=== PATIENT | female | born 1955 | race African-American/Black ===

== ENCOUNTER 2020-04-13 13:48 | Emergency (ER) | payer SELFPAY ==
--- NOTE | 2020-04-13 14:23 | RAD ---
EXAM: Chest one view: HISTORY: Cough COMPARISON: 05/21/2015 FINDINGS: Old granuloma calcification changes in the left hilum. Heart size: Within normal limits. Lungs: Clear of acute process. No evidence for confluent lobar pneumonia, significant pleural effusion, acute edema, or pneumothorax , or other significant acute process. IMPRESSION: No significant acute intrathoracic disease.
== END 2020-04-13 15:12 | disposition home or self-care (01) ==
LOC: ERS 13:48
DX: T78.40XA Allergy, unspecified, initial encounter (principal); R05 Cough; R09.81 Nasal congestion; E78.5 Hyperlipidemia, unspecified; I10 Essential (primary) hypertension; F17.210 Nicotine dependence, cigarettes, uncomplicated; Z79.82 Long term (current) use of aspirin; Z79.899 Other long term (current) drug therapy
CPT/HCPCS: 71045

== ENCOUNTER 2020-09-10 15:01 | Emergency (ER) | payer BC | END 2020-09-10 16:18 | disposition home or self-care (01) | LOC: ERS 15:01 | DX: R05 Cough (principal); R09.81 Nasal congestion; Z79.899 Other long term (current) drug therapy; Z79.82 Long term (current) use of aspirin; E78.5 Hyperlipidemia, unspecified; I10 Essential (primary) hypertension; F17.210 Nicotine dependence, cigarettes, uncomplicated | CPT/HCPCS: 71045 ==

== ENCOUNTER 2021-01-08 | Emergency (ER) | payer OTHER, BC | END 2021-01-08 21:28 | disposition home or self-care (01) ==

== ENCOUNTER 2021-05-27 16:27 | Emergency (ER) | payer BC ==
[2021-05-27 17:16] LABS: Hemoglobin 13.1 g/dL (12.0-16.0); Mean Corpuscular HGB CONC 32.7 g/dL (32.0-36.0); Mean Corpuscular Hemoglobin 30.5 pg (27.0-31.0); Mean Corpuscular Volume 93.1 fL (78.0-98.0); Mean Platelet Volume 6.7 fL (7.4-10.4); Platelet Count 258 thou/uL (130-400); RBC Distribution Width 11.4 % (11.5-14.5); Red Blood Cell (RBC) Count 4.29 mill/uL (4.20-5.40)
[2021-05-27 17:45] LABS: ALT (SGPT) 27 U/L (8-55); AST (SGOT) 32 U/L (5-34); Albumin 4.6 g/dL (3.4-4.8); Alkaline Phosphatase 76 U/L (40-110); Anion Gap 17 mmol/L (10-20); BUN (Urea Nitrogen) 5 mg/dL (9.8-20.1); Bilirubin, Total 0.5 mg/dL (0.2-1.2); Calc. Creatinine Clearance 0 mL/min (70-130); Calcium 9.7 mg/dL (7.8-10.44); Carbon Dioxide 26 mmol/L (23-31); Chloride 87 mmol/L (98-107); Globulin 3.1 g/dL (2.4-3.5); Glucose 128 mg/dL (80-115); Potassium 3.9 mmol/L (3.5-5.1); Protein, Total 7.7 g/dL (5.8-8.1); Sodium 126 mmol/L (136-145)
[2021-05-27 17:48] LABS: Band 1 % (5-11); Eosinophils 1 % (0-10); Lymphocytes 31 % (21-51); MDiff Complete? YES; Monocytes 4 % (0-10); Neutrophil 43 % (42-75); Platelet Morphology Comment Appears Adequate; Reactive Lymphocytes 20 % (0-10); Target Cells SLIGHT = 2-5 cells (100X) (0-1/hpf)
== END 2021-05-27 20:58 | disposition left against medical advice (07) ==
LOC: ERS 16:27
DX: Z53.21 Procedure and treatment not carried out due to patient leaving prior to being seen by health care provider (principal)
CPT/HCPCS: 36415; 71045; 80053; 83690; 84484; 85025; 93005; 94760

== ENCOUNTER 2021-09-25 13:48 | Emergency (ER) | payer OTHER ==
[2021-09-25] MEDS ORDERED: Ketorolac Tromethamine 30 MG/ML VIAL ONE (15:39)
== END 2021-09-25 15:48 | disposition home or self-care (01) ==
LOC: ERS 13:48
DX: M16.12 Unilateral primary osteoarthritis, left hip (principal); I10 Essential (primary) hypertension; E78.5 Hyperlipidemia, unspecified; F17.210 Nicotine dependence, cigarettes, uncomplicated
CPT/HCPCS: 96372; J1885

== ENCOUNTER 2021-11-06 10:56 | Emergency (ER) | payer OTHER ==
[2021-11-06] MEDS ORDERED: Ketorolac Tromethamine 30 MG/ML VIAL ONE (13:13)
== END 2021-11-06 13:45 | disposition home or self-care (01) ==
LOC: ERS 10:56
DX: S42.035A Nondisplaced fracture of lateral end of left clavicle, initial encounter for closed fracture (principal); I10 Essential (primary) hypertension; E78.5 Hyperlipidemia, unspecified; F17.210 Nicotine dependence, cigarettes, uncomplicated; W01.0XXA Fall on same level from slipping, tripping and stumbling without subsequent striking against object, initial encounter
CPT/HCPCS: 96372; J1885

== ENCOUNTER 2022-04-20 13:55 | Emergency (ER) | payer OTHER ==
[~2022-04-20 13:55] MED LIST: Iopamidol-370 76% 500 ML 1 ML ONE
[2022-04-20 14:37] LABS: #Basophils 0.1 thou/uL (0.0-0.2); #Eosinphils 0.1 thou/uL (0.0-0.7); #Lymphocytes 1.1 thou/uL (1.20-3.40); #Monocytes 1.4 thou/uL (0.11-0.59); #Neutrophils 12.8 thou/uL (1.40-6.50); %Basophils 0.4 % (0.0-1.0); %Eosinophils 0.5 % (0.0-10.0); %Lymphocytes 7.2 % (21.0-51.0); %Monocytes 8.9 % (0.0-10.0); %Neutrophils 83.1 % (42.0-75.0); Mean Corpuscular HGB CONC 32.5 g/dL (32.0-36.0); Mean Corpuscular Hemoglobin 31.2 pg (27.0-31.0); Mean Corpuscular Volume 96.3 fl (78.0-98.0); Mean Platelet Volume 6.6 fL (7.4-10.4); Platelet Count 732 10x3/uL (130-400); RBC Distribution Width 14.8 % (11.5-14.5); Red Blood Cell (RBC) Count 2.87 mill/uL (4.20-5.40); White Blood Cell (WBC) Count 15.4 10x3/uL (4.8-10.8)
[2022-04-20 14:56] LABS: ALT (SGPT) 10 U/L (8-55); AST (SGOT) 18 U/L (5-34); Albumin 2.8 g/dL (3.4-4.8); Alkaline Phosphatase 96 U/L (40-110); Anion Gap 13 mmol/L (10-20); BUN (Urea Nitrogen) 5 mg/dL (9.8-20.1); Bilirubin, Total 0.8 mg/dL (0.2-1.2); Calc. Creatinine Clearance 0 mL/min (70-130); Calcium 8.5 mg/dL (7.8-10.44); Carbon Dioxide 27 mmol/L (23-31); Chloride 93 mmol/L (98-107); Estimated GFR 103; Globulin 3.3 g/dL (2.4-3.5); Glucose 105 mg/dL (80-115); Potassium 4.3 mmol/L (3.5-5.1); Protein, Total 6.1 g/dL (5.8-8.1); Sodium 129 mmol/L (136-145)
[2022-04-20 18:06] LABS: Bilirubin Negative (Negative); Blood, Urine 3+ (Negative); Clarity Turbid (Clear); Glucose, Urine (Dipstick) Normal (Negative); Ketone, Urine 10 mg/dL (Negative); Leukocyte 500 Leu/uL (Negative); Nitrite Negative (Negative); Protein, Urine (Dipstick) 50 mg/dL (Neg-Trace); Squamous Epithelial 0-3 HPF (0-3); Urobilinogen Normal mg/dL (Less than 2); pH, Urine 6.5 (5.0-9.0)
[2022-04-20 18:18] LABS: Bacteria/HPF 1+ HPF (None Seen); WBC/HPF 21-50 HPF (0-3)
[2022-04-20] MEDS ORDERED: cefTRIAXone\\ROCEPHIN 2 GM VIAL ONE (18:30)
[2022-04-20] MEDS ORDERED: metroNIDAZOLE 500 MG/100 ML BAG ONE (19:09)
== END 2022-04-20 23:25 | disposition short-term general hospital (02) ==
LOC: ERS 13:55
DX: L02.211 Cutaneous abscess of abdominal wall (principal); E87.1 Hypo-osmolality and hyponatremia; N39.0 Urinary tract infection, site not specified; I10 Essential (primary) hypertension; E78.5 Hyperlipidemia, unspecified; Z79.82 Long term (current) use of aspirin
CPT/HCPCS: 36415; 74177; 80053; 81003; 81015; 85025; 87077; 87086; 87186; 96361; 96365; 96367; J0696

== ENCOUNTER 2022-05-14 14:05 | Outpatient (CLI) | payer OTHER, MEDICARE ==
[~2022-05-14 14:05] MED LIST changes: +Iopamidol 370 76% 100 ML VIAL ONE; -Iopamidol-370 76% 500 ML 1 ML ONE
== END 2022-05-14 14:06 | disposition home or self-care (01) ==
LOC: BICCT 14:05
PROVIDERS: ATTEND Nurse Practitioner Family
DX: C54.1 Malignant neoplasm of endometrium (principal); Z98.890 Other specified postprocedural states
CPT/HCPCS: 74177; Q9967

== ENCOUNTER 2022-05-23 14:17 | Outpatient (CLI) | payer OTHER, MEDICARE | END 2022-05-23 14:18 | disposition home or self-care (01) | LOC: ULT 14:17 | PROVIDERS: ATTEND Surgery | DX: M79.89 Other specified soft tissue disorders (principal); I82.411 Acute embolism and thrombosis of right femoral vein ==

== ENCOUNTER 2022-05-23 16:12 | Emergency (ER) | payer MEDICARE, OTHER ==
[2022-05-23 16:43] LABS: #Eosinphils 0.1 thou/uL (0.0-0.7); #Lymphocytes 2.1 thou/uL (1.20-3.40); #Monocytes 0.7 thou/uL (0.11-0.59); #Neutrophils 2.9 thou/uL (1.40-6.50); %Basophils 0.2 % (0.0-1.0); %Eosinophils 0.9 % (0.0-10.0); %Monocytes 12.4 % (0.0-10.0); %Neutrophils 50.4 % (42.0-75.0); Hemoglobin 12.1 g/dL (12.0-16.0); Mean Corpuscular HGB CONC 31.8 g/dL (32.0-36.0); Mean Corpuscular Hemoglobin 30.2 pg (27.0-31.0); Mean Platelet Volume 6.8 fL (7.4-10.4); Platelet Count 299 10x3/uL (130-400); RBC Distribution Width 14.5 % (11.5-14.5); Red Blood Cell (RBC) Count 4.01 mill/uL (4.20-5.40); White Blood Cell (WBC) Count 5.7 10x3/uL (4.8-10.8)
[2022-05-23 17:03] LABS: ALT (SGPT) 16 U/L (8-55); AST (SGOT) 23 U/L (5-34); Albumin 3.2 g/dL (3.4-4.8); Alkaline Phosphatase 116 U/L (40-110); Anion Gap 12 mmol/L (10-20); BUN (Urea Nitrogen) 5 mg/dL (9.8-20.1); Bilirubin, Total 0.5 mg/dL (0.2-1.2); Calc. Creatinine Clearance 0 mL/min (70-130); Carbon Dioxide 24 mmol/L (23-31); Chloride 100 mmol/L (98-107); Estimated GFR 100; Globulin 3.7 g/dL (2.4-3.5); Glucose 91 mg/dL (80-115); Potassium 3.9 mmol/L (3.5-5.1); Protein, Total 6.9 g/dL (5.8-8.1); Sodium 132 mmol/L (136-145)
[2022-05-23] MEDS ORDERED: Rivaroxaban 15 MG TAB PO SCH (19:30)
== END 2022-05-23 19:30 | disposition home or self-care (01) ==
LOC: ERS 16:12
DX: I82.411 Acute embolism and thrombosis of right femoral vein (principal); E78.5 Hyperlipidemia, unspecified; F17.210 Nicotine dependence, cigarettes, uncomplicated; Z79.82 Long term (current) use of aspirin; M79.89 Other specified soft tissue disorders; C54.1 Malignant neoplasm of endometrium
CPT/HCPCS: 36415; 80053; 82248; 83615; 84100; 84550; 85025; 86304; 99283

== ENCOUNTER 2022-06-09 13:22 | Outpatient (CLI) | payer MEDICARE, OTHER | END 2022-06-09 13:23 | disposition home or self-care (01) | LOC: ULT 13:22 | PROVIDERS: ATTEND Internal Medicine Hematology & Oncology | DX: Z51.11 Encounter for antineoplastic chemotherapy (principal); C54.1 Malignant neoplasm of endometrium; I08.1 Rheumatic disorders of both mitral and tricuspid valves | CPT/HCPCS: 93306 ==

== ENCOUNTER 2022-06-17 09:24 | Day surgery (SDC) | payer MEDICARE, OTHER ==
[2022-06-13 10:28] VITALS: BMI 20.3
[2022-06-17] MEDS ORDERED: Acetaminophen 500 MG TAB ONE (09:59)
[2022-06-17] MEDS ORDERED: Lidocaine 2% PF 5 ML VIAL ONE (11:10)
[2022-06-17] MEDS ORDERED: Bupivacaine/Epinephrine 0.25% 30 ML VIAL ONE (11:10)
[2022-06-17] MEDS ORDERED: Levofloxacin 500 mg/D5W 100 ml Premix Bag ONE (11:27)
[2022-06-17] MEDS ORDERED: fentaNYL PF 100 MCG/2 ML SYRINGE ONE (12:03)
[2022-06-17] MEDS ORDERED: Ondansetron PF 4 MG/2 ML Vial ONE (12:15)
[2022-06-17] MEDS ORDERED: PROPOFOL 200 MG/20 ML VIAL ONE (12:15)
[2022-06-17] MEDS ORDERED: Lidocaine 1% PF 5 ML VIAL ONE (12:15)
[2022-06-17] MEDS ORDERED: PHENYLEPHRINE-NS 100 MCG/ML 10 ML SYRINGE ONE (12:15)
[2022-06-17] MEDS ORDERED: HYDROcodone/Acetaminophen 5/325 mg Tablet ONE (14:25)
== END 2022-06-17 14:45 | disposition home or self-care (01) ==
LOC: SDC 09:24
PROVIDERS: ATTEND Surgery
PROC: 0JH60WZ Insertion of Totally Implantable Vascular Access Device into Chest Subcutaneous Tissue and Fascia, Open Approach (ICD-10-PCS; principal; 2022-06-17)
PROC: 02HV33Z Insertion of Infusion Device into Superior Vena Cava, Percutaneous Approach (ICD-10-PCS; 2022-06-17)
DX: C54.1 Malignant neoplasm of endometrium (principal); C77.9 Secondary and unspecified malignant neoplasm of lymph node, unspecified; Z79.01 Long term (current) use of anticoagulants; Z79.82 Long term (current) use of aspirin; Z79.899 Other long term (current) drug therapy; Z88.0 Allergy status to penicillin; Z90.710 Acquired absence of both cervix and uterus
CPT/HCPCS: 71045; 80053; 82248; 83615; 84100; 84550; 85025; 86304; 93005; 93010; C1788; J1642; J1956; J2001

== ENCOUNTER 2022-08-04 10:27 | Emergency (ER) | payer MEDICARE, OTHER ==
[2022-08-04 11:20] LABS: Hemoglobin 9.1 g/dL (12.0-16.0); Mean Corpuscular HGB CONC 32.3 g/dL (32.0-36.0); Mean Corpuscular Hemoglobin 36.5 pg (27.0-31.0); Mean Platelet Volume 7.8 fL (7.4-10.4); Platelet Count 369 10x3/uL (130-400); RBC Distribution Width 16.3 % (11.5-14.5); White Blood Cell (WBC) Count 4.6 10x3/uL (4.8-10.8)
[2022-08-04 11:29] LABS: ALT (SGPT) 12 U/L (8-55); AST (SGOT) 15 U/L (5-34); Albumin 3.5 g/dL (3.4-4.8); Alkaline Phosphatase 88 U/L (40-110); Anion Gap 13 mmol/L (10-20); BUN (Urea Nitrogen) 9 mg/dL (9.8-20.1); Bilirubin, Total 0.7 mg/dL (0.2-1.2); Calc. Creatinine Clearance 0 mL/min (70-130); Calcium 9.2 mg/dL (7.8-10.44); Carbon Dioxide 23 mmol/L (23-31); Chloride 100 mmol/L (98-107); Estimated GFR 97; Globulin 3.5 g/dL (2.4-3.5); Glucose 181 mg/dL (80-115); Lipase 11 U/L (8-78); Potassium 3.8 mmol/L (3.5-5.1); Sodium 132 mmol/L (136-145)
[2022-08-04 11:46] LABS: #Basophils 0.1 thou/uL (0.0-0.2); #Eosinphils 0.1 thou/uL (0.0-0.7); #Lymphocytes 0.5 thou/uL (1.20-3.40); #Monocytes 0.1 thou/uL (0.11-0.59); #Neutrophils 3.8 thou/uL (1.40-6.50); %Basophils 1.4 % (0.0-1.0); %Eosinophils 2.4 % (0.0-10.0); %Lymphocytes 10.6 % (21.0-51.0); %Monocytes 1.4 % (0.0-10.0); Anisocytosis SLIGHT = 6-15 cells (100X) (0-5/hpf); Band 6 % (5-11); Eosinophils 2 % (0-10); Lymphocytes 15 % (21-51); MDiff Complete? YES; Macrocytosis MODERATE=16-30 cells (100X) (0-5/hpf); Metamyelocyte 1 % (0-0); Neutrophil 76 % (42-75); Ovalocytes SLIGHT = 2-5 cells (100X) (0-1/hpf); Platelet Morphology Comment Appears Adequate; Target Cells SLIGHT = 2-5 cells (100X) (0-1/hpf)
[2022-08-04] MEDS ORDERED: Ondansetron PF 4 MG/2 ML Vial ONE (13:04)
[2022-08-04] MEDS ORDERED: Morphine 4 MG/ML VIAL ONE (13:04)
== END 2022-08-04 13:53 | disposition home or self-care (01) ==
LOC: ERS 10:27
DX: K29.70 Gastritis, unspecified, without bleeding (principal); D64.9 Anemia, unspecified; E87.1 Hypo-osmolality and hyponatremia; D72.819 Decreased white blood cell count, unspecified; I10 Essential (primary) hypertension; E78.5 Hyperlipidemia, unspecified; F17.210 Nicotine dependence, cigarettes, uncomplicated; Z79.899 Other long term (current) drug therapy
CPT/HCPCS: 36415; 74177; 80053; 83690; 84484; 85025; 93005; 96374; 96375; J2270; J2405; Q9967

== ENCOUNTER 2022-08-19 09:45 | Inpatient (IN) | payer OTHER ==
[2022-08-19 11:15] LABS: #Basophils 0.1 thou/uL (0.0-0.2); #Lymphocytes 1.3 thou/uL (1.20-3.40); #Monocytes 0.4 thou/uL (0.11-0.59); #Neutrophils 5.2 thou/uL (1.40-6.50); %Basophils 0.8 % (0.0-1.0); %Eosinophils 0.5 % (0.0-10.0); %Lymphocytes 18.6 % (21.0-51.0); %Monocytes 5.8 % (0.0-10.0); %Neutrophils 74.3 % (42.0-75.0); Hemoglobin 7.3 g/dL (12.0-16.0); Mean Corpuscular HGB CONC 32.8 g/dL (32.0-36.0); Mean Corpuscular Hemoglobin 36.4 pg (27.0-31.0); Mean Platelet Volume 6.6 fL (7.4-10.4); Platelet Count 236 10x3/uL (130-400); RBC Distribution Width 14.7 % (11.5-14.5); Red Blood Cell (RBC) Count 1.99 mill/uL (4.20-5.40); White Blood Cell (WBC) Count 6.9 10x3/uL (4.8-10.8)
[2022-08-19] MEDS ORDERED: Ondansetron PF 4 MG/2 ML Vial ONE (11:23)
[2022-08-19 11:27] LABS: INR-International Normal Ratio 1.5; PTT 33.3 sec (22.9-36.1)
[2022-08-19] MEDS ORDERED: Morphine 4 MG/ML VIAL ONE (11:51)
[2022-08-19 12:02] LABS: ALT (SGPT) 10 U/L (8-55); AST (SGOT) 17 U/L (5-34); Albumin 3.1 g/dL (3.4-4.8); Alkaline Phosphatase 98 U/L (40-110); Anion Gap 12 mmol/L (10-20); BUN (Urea Nitrogen) 11 mg/dL (9.8-20.1); Bilirubin, Total 0.3 mg/dL (0.2-1.2); Calc. Creatinine Clearance 0 mL/min (70-130); Calcium 8.6 mg/dL (7.8-10.44); Carbon Dioxide 25 mmol/L (23-31); Chloride 98 mmol/L (98-107); Estimated GFR 102; Globulin 2.8 g/dL (2.4-3.5); Glucose 98 mg/dL (80-115); Potassium 3.7 mmol/L (3.5-5.1); Protein, Total 5.9 g/dL (5.8-8.1); Sodium 131 mmol/L (136-145)
[2022-08-19] MEDS ORDERED: Ondansetron PF 4 MG/2 ML Vial IVP PRN (13:17)
[2022-08-19] MEDS ORDERED: Pantoprazole 80 MG in Sodium Chloride 0.9% 100 ML IVPB SCH (15:45)
[2022-08-19] MEDS: Pantoprazole 80 MG, Admixture Fee 1 EACH in Sodium Chloride 0.9% 100 ML IVPB SCH (21:43)
[2022-08-20 01:15] LABS: Hemoglobin 8.3 g/dL (12.0-16.0)
[2022-08-20 05:40] LABS: #Basophils 0.1 thou/uL (0.0-0.2); #Lymphocytes 1.8 thou/uL (1.20-3.40); #Monocytes 0.7 thou/uL (0.11-0.59); #Neutrophils 3.5 thou/uL (1.40-6.50); %Basophils 0.9 % (0.0-1.0); %Eosinophils 0.5 % (0.0-10.0); %Lymphocytes 29.2 % (21.0-51.0); %Monocytes 10.8 % (0.0-10.0); %Neutrophils 58.5 % (42.0-75.0); Hemoglobin 7.9 g/dL (12.0-16.0); Mean Corpuscular HGB CONC 33.1 g/dL (32.0-36.0); Mean Corpuscular Hemoglobin 35.1 pg (27.0-31.0); Mean Platelet Volume 6.8 fL (7.4-10.4); Platelet Count 158 10x3/uL (130-400); RBC Distribution Width 17.6 % (11.5-14.5); Red Blood Cell (RBC) Count 2.26 mill/uL (4.20-5.40)
[2022-08-20 06:00] LABS: Anion Gap 10 mmol/L (10-20); BUN (Urea Nitrogen) 8 mg/dL (9.8-20.1); Calc. Creatinine Clearance 94 mL/min (70-130); Calcium 8.2 mg/dL (7.8-10.44); Carbon Dioxide 25 mmol/L (23-31); Chloride 104 mmol/L (98-107); Estimated GFR 102; Glucose 78 mg/dL (80-115); Potassium 3.8 mmol/L (3.5-5.1); Sodium 135 mmol/L (136-145)
[2022-08-20] MEDS: Pantoprazole 80 MG, Admixture Fee 1 EACH in Sodium Chloride 0.9% 100 ML IVPB SCH (07:58)
[2022-08-20] MEDS ORDERED: PROPOFOL 200 MG/20 ML VIAL ONE (10:27)
[2022-08-20] MEDS ORDERED: Lidocaine 1% PF 5 ML VIAL ONE (10:27)
[2022-08-20] MEDS ORDERED: Ondansetron HCl/PF 4 MG/2 ML Vial IVP PRN (11:03)
[2022-08-20] MEDS ORDERED: PACU-Morphine 4MG/ML VIAL SLOW IVP PRN (11:03)
[2022-08-20] MEDS ORDERED: fentaNYL 50 mcg/mL 1 mL Vial ONE (11:03)
[2022-08-20] MEDS ORDERED: Promethazine HCl 25 MG/ML VIAL IM PRN (11:03)
[2022-08-20] MEDS ORDERED: Morphine Sulfate 2 MG/ML SYRINGE SLOW IVP PRN (11:03)
[2022-08-20] MEDS ORDERED: Lisinopril 10 MG TAB PO SCH (16:00)
[2022-08-20] MEDS: Pantoprazole 40 MG VIAL IVP SCH (20:14)
[2022-08-20] MEDS ORDERED: Melatonin 3 MG TAB PO PRN (20:38)
[2022-08-20] MEDS ORDERED: diphenhydrAMINE 25 MG CAP PO SCH (20:45)
[2022-08-21 05:36] LABS: Hemoglobin 7.8 g/dL (12.0-16.0)
[2022-08-21] MEDS: Pantoprazole 40 MG VIAL IVP SCH (07:53)
[2022-08-21 08:02] VITALS: BP 164/76; TEMP 98.4
[2022-08-21] MEDS ORDERED: Lisinopril 10 MG TAB PO SCH (09:00)
[2022-08-21] MEDS ORDERED: Atorvastatin Calcium 20 MG TAB PO SCH (09:00)
== END 2022-08-21 09:24 | disposition home or self-care (01) | DRG 378 ==
LOC: ERS 09:45 → T4-B 14:04
PROVIDERS: ADMIT Internal Medicine; ATTEND Hospitalist
PROC: 30233N1 Transfusion of Nonautologous Red Blood Cells into Peripheral Vein, Percutaneous Approach (ICD-10-PCS; 2022-08-19)
PROC: 0DB78ZX Excision of Stomach, Pylorus, Via Natural or Artificial Opening Endoscopic, Diagnostic (ICD-10-PCS; principal; 2022-08-20)
DX: K25.4 Chronic or unspecified gastric ulcer with hemorrhage (principal); C56.9 Malignant neoplasm of unspecified ovary; D62 Acute posthemorrhagic anemia; I10 Essential (primary) hypertension; F17.210 Nicotine dependence, cigarettes, uncomplicated; Z88.0 Allergy status to penicillin; Z79.82 Long term (current) use of aspirin; Z79.899 Other long term (current) drug therapy
CPT/HCPCS: 36415; 36430; 80048; 80053; 82248; 83615; 84100; 84550; 85014; 85018; 85025; 85610; 85730; 86304; 86850; 86900; 86901; 88305; 88342; C9113; J2270; J2405; J2704; J3010; J3490; P9016

== ENCOUNTER 2022-09-16 13:42 | Inpatient (IN) | payer OTHER ==
[2022-09-16] MEDS ORDERED: Ondansetron PF 4 MG/2 ML Vial IVP PRN (15:52)
[2022-09-16] MEDS ORDERED: Pantoprazole 40 MG VIAL IVP SCH (16:00)
[2022-09-16 16:14] LABS: #Monocytes 1.1 thou/uL (0.11-0.59); #Neutrophils 6.5 thou/uL (1.40-6.50); %Basophils 0.1 % (0.0-1.0); %Eosinophils 0.1 % (0.0-10.0); %Lymphocytes 16.1 % (21.0-51.0); %Monocytes 12.4 % (0.0-10.0); %Neutrophils 70.9 % (42.0-75.0); Hemoglobin 7.5 g/dL (12.0-16.0); Mean Corpuscular HGB CONC 32.6 g/dL (32.0-36.0); Mean Corpuscular Hemoglobin 33.5 pg (27.0-31.0); Mean Corpuscular Volume 102.7 fl (78.0-98.0); Mean Platelet Volume 10.3 fL (7.4-10.4); Platelet Count 179 10x3/uL (130-400); RBC Distribution Width 23.1 % (11.5-14.5); Red Blood Cell (RBC) Count 2.24 mill/uL (4.20-5.40); White Blood Cell (WBC) Count 9.1 10x3/uL (4.8-10.8)
[2022-09-16] MEDS: Sodium Chloride 0.9% 1,000 ML IV SCH (16:44)
[2022-09-16 17:35] LABS: ALT (SGPT) Less than 7 U/L (8-55); AST (SGOT) 10 U/L (5-34); Alkaline Phosphatase 101 U/L (40-110); Anion Gap 13 mmol/L (10-20); BUN (Urea Nitrogen) 6 mg/dL (9.8-20.1); Bilirubin, Total 0.6 mg/dL (0.2-1.2); Calc. Creatinine Clearance 83 mL/min (70-130); Carbon Dioxide 21 mmol/L (23-31); Chloride 102 mmol/L (98-107); Estimated GFR 99; Globulin 2.8 g/dL (2.4-3.5); Glucose 106 mg/dL (80-115); Potassium 4.4 mmol/L (3.5-5.1); Protein, Total 5.8 g/dL (5.8-8.1); Sodium 132 mmol/L (136-145)
[2022-09-16] MEDS ORDERED: Thiamine 100 MG TAB PO SCH (19:30)
[2022-09-16] MEDS: Zolpidem Tartrate 5 MG TAB PO PRN (20:33)
[2022-09-16 22:16] LABS: Hemoglobin 7.9 g/dL (12.0-16.0)
[2022-09-17 04:35] LABS: #Monocytes 0.8 thou/uL (0.11-0.59); %Eosinophils 0.3 % (0.0-10.0); %Lymphocytes 18.7 % (21.0-51.0); %Monocytes 10.9 % (0.0-10.0); %Neutrophils 69.5 % (42.0-75.0); Hemoglobin 7.5 g/dL (12.0-16.0); Mean Corpuscular HGB CONC 33.5 g/dL (32.0-36.0); Mean Corpuscular Hemoglobin 33.3 pg (27.0-31.0); Mean Platelet Volume 10.5 fL (7.4-10.4); Platelet Count 180 10x3/uL (130-400); RBC Distribution Width 23.6 % (11.5-14.5); Red Blood Cell (RBC) Count 2.25 mill/uL (4.20-5.40); White Blood Cell (WBC) Count 7.2 10x3/uL (4.8-10.8)
[2022-09-17 04:48] LABS: Mean Corpuscular Volume 99.6 fl (78.0-98.0)
[2022-09-17 05:08] LABS: ALT (SGPT) Less than 7 U/L (8-55); AST (SGOT) 12 U/L (5-34); Albumin 2.6 g/dL (3.4-4.8); Alkaline Phosphatase 88 U/L (40-110); Anion Gap 11 mmol/L (10-20); BUN (Urea Nitrogen) Less than 4 mg/dL (9.8-20.1); Bilirubin, Total 0.7 mg/dL (0.2-1.2); Calc. Creatinine Clearance 93 mL/min (70-130); Calcium 8.2 mg/dL (7.8-10.44); Carbon Dioxide 22 mmol/L (23-31); Chloride 105 mmol/L (98-107); Estimated GFR 102; Globulin 2.7 g/dL (2.4-3.5); Glucose 90 mg/dL (80-115); Potassium 4.2 mmol/L (3.5-5.1); Protein, Total 5.3 g/dL (5.8-8.1); Sodium 134 mmol/L (136-145)
[2022-09-17] MEDS: Sodium Chloride 0.9% 1,000 ML IV SCH (06:29)
[2022-09-17] MEDS: Folic Acid 1 MG TAB PO SCH (08:13)
[2022-09-17] MEDS: Pantoprazole 40 MG VIAL IVP SCH ×2 (08:13→20:06)
[2022-09-17] MEDS: Thiamine 100 MG TAB PO SCH (08:13)
[2022-09-17] MEDS: Multivit, Therapeutic 1 TAB PO SCH (08:13)
[2022-09-17] MEDS: Nicotine 21 MG PATCH TD SCH (08:14)
[2022-09-17] MEDS: Lisinopril 10 MG TAB PO SCH (08:56)
[2022-09-17] MEDS: Atorvastatin Calcium 20 MG TAB PO SCH (08:56)
[2022-09-17] MEDS ORDERED: Lisinopril 10 MG TAB PO SCH (09:00)
[2022-09-17] MEDS ORDERED: Atorvastatin Calcium 20 MG TAB PO SCH (09:00)
[2022-09-17] MEDS ORDERED: Bisacodyl 5 MG TAB PO PRN (13:48)
[2022-09-17] MEDS ORDERED: Docusate 100 MG CAP PO PRN (13:48)
[2022-09-17] MEDS: hydrALAZINE 20 MG/ML VIAL SLOW IVP PRN (15:55)
[2022-09-17] MEDS ORDERED: Morphine 4 MG/ML VIAL SLOW IVP SCH (17:00)
[2022-09-17] MEDS ORDERED: Lidocaine 2% Viscous Solution 10 ML, Aluminum & Magnesium Hydroxide 30 ML SSW SCH ×2 (17:00→18:00)
[2022-09-17 17:10] LABS: Hemoglobin 8.5 g/dL (12.0-16.0)
[2022-09-17 17:38] LABS: Troponin I Less than 0.010 ng/mL (< 0.028)
[2022-09-17] MEDS ORDERED: Morphine 2 MG/ML VIAL SLOW IVP PRN (19:00)
[2022-09-17] MEDS: Zolpidem Tartrate 5 MG TAB PO PRN (20:06)
[2022-09-18] MEDS: Nicotine 21 MG PATCH TD SCH (08:22)
[2022-09-18] MEDS: Pantoprazole 40 MG VIAL IVP SCH ×2 (08:22→20:17)
[2022-09-18] MEDS: Lisinopril 10 MG TAB PO SCH (08:23)
[2022-09-18] MEDS: Atorvastatin Calcium 20 MG TAB PO SCH (08:23)
[2022-09-18] MEDS: Multivit, Therapeutic 1 TAB PO SCH (08:23)
[2022-09-18] MEDS: Folic Acid 1 MG TAB PO SCH (08:23)
[2022-09-18] MEDS: Thiamine 100 MG TAB PO SCH (08:23)
[2022-09-18 09:40] LABS: Hemoglobin 7.5 g/dL (12.0-16.0)
[2022-09-18] MEDS: hydrALAZINE 20 MG/ML VIAL SLOW IVP PRN (14:59)
[2022-09-18 15:14] LABS: Hemoglobin 7.6 g/dL (12.0-16.0)
[2022-09-18] MEDS: Zolpidem Tartrate 5 MG TAB PO PRN (20:34)
[2022-09-18] MEDS ORDERED: Acetaminophen 325 MG TAB PO PRN (23:45)
[2022-09-19 00:44] LABS: Hemoglobin 8.8 g/dL (12.0-16.0)
[2022-09-19 07:40] VITALS: BP 164/87; TEMP 98.2
[2022-09-19] MEDS: Multivit, Therapeutic 1 TAB PO SCH (08:03)
[2022-09-19] MEDS: Lisinopril 10 MG TAB PO SCH (08:03)
[2022-09-19] MEDS: Atorvastatin Calcium 20 MG TAB PO SCH (08:03)
[2022-09-19] MEDS: Thiamine 100 MG TAB PO SCH (08:03)
[2022-09-19] MEDS: Folic Acid 1 MG TAB PO SCH (08:03)
[2022-09-19] MEDS: Nicotine 21 MG PATCH TD SCH (08:03)
[2022-09-19] MEDS: Pantoprazole 40 MG VIAL IVP SCH (08:04)
== END 2022-09-19 11:42 | disposition home or self-care (01) | DRG 378 ==
LOC: 2NO 15:48
PROVIDERS: ADMIT Internal Medicine; ATTEND Internal Medicine
PROC: 30233N0 Transfusion of Autologous Red Blood Cells into Peripheral Vein, Percutaneous Approach (ICD-10-PCS; principal; 2022-09-18)
DX: K25.6 Chronic or unspecified gastric ulcer with both hemorrhage and perforation (principal); A04.8 Other specified bacterial intestinal infections; D62 Acute posthemorrhagic anemia; C56.9 Malignant neoplasm of unspecified ovary; I10 Essential (primary) hypertension; G47.00 Insomnia, unspecified; E78.5 Hyperlipidemia, unspecified; F17.210 Nicotine dependence, cigarettes, uncomplicated; Z98.890 Other specified postprocedural states; Z79.01 Long term (current) use of anticoagulants; Z86.718 Personal history of other venous thrombosis and embolism; Z90.710 Acquired absence of both cervix and uterus; Z71.6 Tobacco abuse counseling; Z79.82 Long term (current) use of aspirin; Z79.899 Other long term (current) drug therapy; Z88.0 Allergy status to penicillin; Z91.148 Patient's other noncompliance with medication regimen for other reason
CPT/HCPCS: 36415; 36430; 80053; 84484; 85014; 85018; 85025; 85730; 86850; 86900; 86901; 93005; 93010; C9113; J0360; J2270; J2272; J7050; P9016

== ENCOUNTER → 2022-09-16 | Day surgery (SDC) | payer OTHER ==
[~2022-09-16] MED LIST changes: +Acetaminophen 500 MG TAB ONE; +Acetaminophen 500 MG TAB PO SCH; -Iopamidol 370 76% 100 ML VIAL ONE; +diphenhydrAMINE 25 MG CAP ONE; +diphenhydrAMINE 25 MG CAP PO SCH
[2022-09-16 15:35] VITALS: BP 129/63; TEMP 98.4
== END | disposition home or self-care (01) ==
LOC: ONC/OP 10:36
PROVIDERS: ATTEND Internal Medicine Hematology & Oncology
PROC: 30233N1 Transfusion of Nonautologous Red Blood Cells into Peripheral Vein, Percutaneous Approach (ICD-10-PCS; principal; 2022-09-16)
DX: D64.9 Anemia, unspecified (principal); D69.6 Thrombocytopenia, unspecified; Z88.0 Allergy status to penicillin
CPT/HCPCS: 36430; 86850; 86900; 86901; P9016

== ENCOUNTER 2022-09-21 19:12 | Observation (INO) | payer OTHER ==
[~2022-09-21 19:12] MED LIST changes: -Acetaminophen 500 MG TAB ONE; -Acetaminophen 500 MG TAB PO SCH; +Iopamidol-370 76% 500 ML MDV (1 ML CHARGE) ONE; -diphenhydrAMINE 25 MG CAP ONE; -diphenhydrAMINE 25 MG CAP PO SCH
[2022-09-21] MEDS ORDERED: Ketorolac Tromethamine 30 MG/ML VIAL ONE (20:02)
[2022-09-21] MEDS ORDERED: Ondansetron PF 4 MG/2 ML Vial ONE (20:02)
[2022-09-21 20:19] LABS: #Monocytes 0.7 thou/uL (0.11-0.59); #Neutrophils 6.6 thou/uL (1.40-6.50); %Basophils 0.5 % (0.0-1.0); %Eosinophils 0.3 % (0.0-10.0); %Lymphocytes 10.8 % (21.0-51.0); %Monocytes 8.3 % (0.0-10.0); %Neutrophils 75.7 % (42.0-75.0); Hemoglobin 10.8 g/dL (12.0-16.0); Mean Corpuscular HGB CONC 31.2 g/dL (32.0-36.0); Mean Corpuscular Hemoglobin 32.9 pg (27.0-31.0); Mean Corpuscular Volume 105.5 fl (78.0-98.0); Mean Platelet Volume 9.6 fL (7.4-10.4); Platelet Count 286 10x3/uL (130-400); RBC Distribution Width 19.9 % (11.5-14.5); Red Blood Cell (RBC) Count 3.28 mill/uL (4.20-5.40); White Blood Cell (WBC) Count 8.7 10x3/uL (4.8-10.8)
[2022-09-21 20:35] LABS: INR-International Normal Ratio 1.2; PTT 31.4 sec (22.9-36.1); Prothrombin Time 15.2 sec (12.0-14.7)
[2022-09-21 20:43] LABS: ALT (SGPT) 16 U/L (8-55); AST (SGOT) 31 U/L (5-34); Albumin 3.2 g/dL (3.4-4.8); Alkaline Phosphatase 92 U/L (40-110); Anion Gap 13 mmol/L (10-20); BUN (Urea Nitrogen) 5 mg/dL (9.8-20.1); Bilirubin, Total 0.4 mg/dL (0.2-1.2); Calc. Creatinine Clearance 0 mL/min (70-130); Calcium 8.8 mg/dL (7.8-10.44); Carbon Dioxide 24 mmol/L (23-31); Chloride 102 mmol/L (98-107); Estimated GFR 77; Globulin 3.3 g/dL (2.4-3.5); Glucose 91 mg/dL (80-115); Lipase Less than 4 U/L (8-78); Potassium 4.5 mmol/L (3.5-5.1); Protein, Total 6.5 g/dL (5.8-8.1); Sodium 134 mmol/L (136-145)
[2022-09-21] MEDS ORDERED: Morphine 4 MG/ML VIAL ONE (21:11)
[2022-09-21] MEDS ORDERED: Morphine 2 MG/ML VIAL SLOW IVP PRN (21:48)
[2022-09-21] MEDS ORDERED: Ondansetron PF 4 MG/2 ML Vial IVP PRN (21:50)
[2022-09-21] MEDS ORDERED: Ipratropium/Albuterol 3 ML NEB NEB PRN (21:50)
[2022-09-21] MEDS ORDERED: hydrALAZINE 20 MG/ML VIAL SLOW IVP PRN (21:50)
[2022-09-21] MEDS ORDERED: Sodium Chloride 0.9% 1,000 ML IV SCH (22:00)
[2022-09-21] MEDS: Acetaminophen 325 MG TAB PO SCH (23:32)
[2022-09-21] MEDS: Acetaminophen/Codeine 30-300mg Tablet PO SCH (23:33)
[2022-09-21 23:54] VITALS: BMI 19.8
[2022-09-22] MEDS: Acetaminophen 325 MG TAB PO SCH ×2 (05:11→12:00)
[2022-09-22] MEDS: Acetaminophen/Codeine 30-300mg Tablet PO SCH ×2 (05:11→11:54)
[2022-09-22] MEDS ORDERED: Thiamine 100 MG TAB PO SCH (09:00)
[2022-09-22] MEDS ORDERED: Folic Acid 1 MG TAB PO SCH (09:00)
[2022-09-22] MEDS ORDERED: Oxazepam 10 MG CAP PO SCH (09:00)
[2022-09-22] MEDS ORDERED: Lisinopril 10 MG TAB PO SCH (09:00)
[2022-09-22] MEDS ORDERED: Pregabalin 50 MG CAP PO SCH (09:00)
[2022-09-22] MEDS ORDERED: Famotidine/PF 20 mg/2ml Vial SLOW IVP SCH (09:00)
[2022-09-22] MEDS ORDERED: Atorvastatin Calcium 20 MG TAB PO SCH (09:00)
[2022-09-22 12:40] VITALS: BP 164/75; TEMP 98.3
== END 2022-09-22 16:30 | disposition home or self-care (01) ==
LOC: ERS 19:12 → SURG B 21:34
PROVIDERS: ADMIT Surgery; ATTEND Surgery
DX: S32.020A Wedge compression fracture of second lumbar vertebra, initial encounter for closed fracture (principal); S32.031A Stable burst fracture of third lumbar vertebra, initial encounter for closed fracture; S32.040A Wedge compression fracture of fourth lumbar vertebra, initial encounter for closed fracture; S32.050A Wedge compression fracture of fifth lumbar vertebra, initial encounter for closed fracture; F10.10 Alcohol abuse, uncomplicated; F17.210 Nicotine dependence, cigarettes, uncomplicated; G89.11 Acute pain due to trauma; I10 Essential (primary) hypertension; E78.5 Hyperlipidemia, unspecified; C56.9 Malignant neoplasm of unspecified ovary; I82.509 Chronic embolism and thrombosis of unspecified deep veins of unspecified lower extremity; Z79.01 Long term (current) use of anticoagulants; Z79.60 Long term (current) use of unspecified immunomodulators and immunosuppressants; Z79.899 Other long term (current) drug therapy; Z88.0 Allergy status to penicillin; V43.52XA Car driver injured in collision with other type car in traffic accident, initial encounter
CPT/HCPCS: 71260; 74177; 80053; 83690; 85025; 85610; 85730; 96361; 96374; 96375; 99285; G0378 ×3; 36415; G0390; J1885; J2270; J2405; J7050; Q9967

== ENCOUNTER 2023-01-07 13:21 | Outpatient (CLI) | payer OTHER | END 2023-01-07 13:22 | disposition home or self-care (01) | LOC: ULT 13:21 | PROVIDERS: ATTEND Internal Medicine Hematology & Oncology | DX: Z51.11 Encounter for antineoplastic chemotherapy (principal); C54.1 Malignant neoplasm of endometrium; I08.1 Rheumatic disorders of both mitral and tricuspid valves; Z79.899 Other long term (current) drug therapy | CPT/HCPCS: 93306 ==

== ENCOUNTER 2023-10-05 22:15 | Emergency (ER) | payer MEDICARE, OTHER | END 2023-10-05 23:42 | LOC: ERS 22:15 | DX: Z00.00 Encounter for general adult medical examination without abnormal findings (principal); I10 Essential (primary) hypertension; F17.210 Nicotine dependence, cigarettes, uncomplicated; Z79.899 Other long term (current) drug therapy | CPT/HCPCS: 99282 ==

== ENCOUNTER 2024-05-24 12:31 | Inpatient (IN) | payer OTHER ==
[2024-05-24 13:18] LABS: #Basophils Less than 0.03 10x3/uL (0.0-0.2); %Basophils 0.4 % (0.0-1.0); %Neutrophils 67.2 % (42.0-75.0); Hematocrit 27.1 % (36.0-47.0); Hemoglobin 9.2 g/dL (12.0-16.0); Mean Corpuscular HGB CONC 33.9 g/dL (32.0-36.0); Mean Corpuscular Hemoglobin 31.2 pg (27.0-31.0); Mean Corpuscular Volume 91.9 fL (78.0-98.0); Mean Platelet Volume 8.9 fL (7.4-10.4); Platelet Count 178 10x3/uL (130-400); RBC Distribution Width 13.3 % (11.5-14.5); Red Blood Cell (RBC) Count 2.95 mill/uL (4.20-5.40)
[2024-05-24 13:31] LABS: ALT (SGPT) 20 U/L (8-55); AST (SGOT) 19 U/L (5-34); Albumin 4.2 g/dL (3.4-4.8); Alkaline Phosphatase 63 U/L (40-110); Anion Gap 14 mmol/L (10-20); BUN (Urea Nitrogen) 12 mg/dL (9.8-20.1); Bilirubin, Total 0.7 mg/dL (0.2-1.2); Calc. Creatinine Clearance 0 mL/min (70-130); Calcium 9.1 mg/dL (7.8-10.44); Carbon Dioxide 24 mmol/L (23-31); Chloride 100 mmol/L (98-107); Estimated GFR 80; Globulin 3.2 g/dL (2.4-3.5); Glucose 122 mg/dL (80-115); Lipase 9 U/L (8-78); Protein, Total 7.4 g/dL (5.8-8.1); Sodium 134 mmol/L (136-145)
[2024-05-24 13:32] LABS: Bacteria/HPF None Seen HPF (None Seen); Bilirubin Negative (Negative); Blood, Urine Negative (Negative); CAUTI Indications for Culture < 2yrs of age; Clarity Clear (Clear); Glucose, Urine (Dipstick) Normal (Negative); Ketone, Urine Negative (Negative); Leukocyte 75 Leu/uL (Negative); Nitrite Negative (Negative); Protein, Urine (Dipstick) Negative (Neg-Trace); RBC/HPF 0-3 HPF (0-3); Specific Gravity, Urine 1.018 (1.002-1.036); Squamous Epithelial 0-3 HPF (0-3); Urobilinogen Normal mg/dL (Less than 2); WBC/HPF 0-3 HPF (0-3); pH, Urine 5.5 (5.0-9.0)
[2024-05-24 13:43] LABS: Urine Culture Reflex Yes Yes
[2024-05-24] MEDS ORDERED: Pantoprazole 40 MG VIAL ONE ×2 (13:45→13:46)
[2024-05-24 13:47] LABS: INR-International Normal Ratio 1.1; PTT 26.2 sec (22.9-36.1); Prothrombin Time 13.8 sec (12.0-14.7)
[2024-05-24] MEDS ORDERED: Acetaminophen 650 MG Suppository PR PRN (14:24)
[2024-05-24] MEDS ORDERED: Ondansetron ODT 4 MG TAB PO PRN (14:25)
[2024-05-24] MEDS ORDERED: Lorazepam 1 MG TAB PO PRN (14:25)
[2024-05-24] MEDS ORDERED: Lorazepam 2 MG/ML VIAL IM PRN (14:25)
[2024-05-24] MEDS ORDERED: Electrolyte Replacement Protocol 1 EACH FS SCH (14:30)
[2024-05-24] MEDS ORDERED: Electrolyte Replacement Protocol 1 EACH FS PRN (14:30)
[2024-05-24] MEDS ORDERED: Sodium Chloride 0.9% 100 ML ONE (14:42)
[2024-05-24] MEDS ORDERED: cefTRIAXone (ROCEPHIN) 1 GM VIAL ONE (14:42)
[2024-05-24] MEDS ORDERED: LevoFLOXacin 750 MG TAB PO SCH (15:00)
[2024-05-24 15:06] LABS: Phosphorus 3.3 mg/dL (2.3-4.7)
[2024-05-24 15:07] LABS: #Basophils Less than 0.03 10x3/uL (0.0-0.2); %Basophils 0.2 % (0.0-1.0); %Lymphocytes 15.2 % (21.0-51.0); %Monocytes 7.7 % (0.0-10.0); %Neutrophils 75.7 % (42.0-75.0); Hematocrit 24.6 % (36.0-47.0); Hemoglobin 8.3 g/dL (12.0-16.0); Mean Corpuscular HGB CONC 33.7 g/dL (32.0-36.0); Mean Corpuscular Hemoglobin 31.4 pg (27.0-31.0); Mean Corpuscular Volume 93.2 fL (78.0-98.0); Platelet Count 155 10x3/uL (130-400); RBC Distribution Width 13.4 % (11.5-14.5); Red Blood Cell (RBC) Count 2.64 mill/uL (4.20-5.40)
[2024-05-24 17:05] VITALS: BMI 25.5
[2024-05-24 17:57] LABS: Lactic Acid 1.62 mmol/L (0.5-2.2)
[2024-05-24] MEDS: Thiamine HCl 200 MG/2 ML VIAL SLOW IVP SCH (18:01)
[2024-05-24] MEDS: Octreotide Acetate 1,250 MCG in Sodium Chloride 0.9% 250 ML 250 ML IVPB SCH (18:02)
[2024-05-24] MEDS: Pantoprazole 80 MG, Admixture Fee 1 EACH in Sodium Chloride 0.9% 100 ML IVPB SCH (18:02)
[2024-05-24 20:22] LABS: Hematocrit 23.9 % (36.0-47.0); Platelet Count 148 10x3/uL (130-400)
[2024-05-24] MEDS: Zolpidem Tartrate 5 MG TAB PO PRN (21:18)
[2024-05-24] MEDS: Acetaminophen 325 MG TAB PO PRN (21:18)
[2024-05-24] MEDS: Magnesium 2 GM/50 ML(in water) 2 GM in Premix 1 BAG IVPB SCH (21:57)
[2024-05-25 01:37] LABS: Platelet Count 132 10x3/uL (130-400)
[2024-05-25] MEDS ORDERED: LevoFLOXacin 750 MG TAB PO SCH (06:00)
[2024-05-25 06:33] LABS: INR-International Normal Ratio 1.1; Prothrombin Time 14.2 sec (12.0-14.7)
[2024-05-25 06:51] LABS: ALT (SGPT) 13 U/L (8-55); AST (SGOT) 14 U/L (5-34); Albumin 3.3 g/dL (3.4-4.8); Alkaline Phosphatase 52 U/L (40-110); Anion Gap 10 mmol/L (10-20); BUN (Urea Nitrogen) 8 mg/dL (9.8-20.1); Bilirubin, Total 0.6 mg/dL (0.2-1.2); Calc. Creatinine Clearance 108 mL/min (70-130); Calcium 8.1 mg/dL (7.8-10.44); Carbon Dioxide 23 mmol/L (23-31); Chloride 107 mmol/L (98-107); Estimated GFR 99; Globulin 2.5 g/dL (2.4-3.5); Glucose 130 mg/dL (80-115); Potassium 3.9 mmol/L (3.5-5.1); Protein, Total 5.8 g/dL (5.8-8.1); Sodium 136 mmol/L (136-145)
[2024-05-25 07:58] LABS: Hematocrit 22.1 % (36.0-47.0); Hemoglobin 7.3 g/dL (12.0-16.0); Platelet Count 157 10x3/uL (130-400)
[2024-05-25] MEDS ORDERED: Midazolam HCl 2 mg/2 ml Vial ONE (11:16)
[2024-05-25] MEDS ORDERED: Etomidate 40 MG (20 mL) VIAL ONE (11:16)
[2024-05-25] MEDS ORDERED: PROPOFOL 0 ML ONE (11:29)
[2024-05-25] MEDS ORDERED: PROPOFOL 40 ML ONE (11:41)
[2024-05-25] MEDS ORDERED: Lorazepam 1 MG TAB PO PRN (14:25)
[2024-05-25] MEDS: Multivit, Therapeutic 1 TAB PO SCH (14:47)
[2024-05-25] MEDS: Folic Acid 1 MG TAB PO SCH (14:47)
[2024-05-25 15:25] LABS: Hematocrit 31.6 % (36.0-47.0); Hemoglobin 9.9 g/dL (12.0-16.0); Platelet Count 147 10x3/uL (130-400)
[2024-05-25] MEDS: cefTRIAXone\\ROCEPHIN 1 GM in Sodium Chloride 0.9% 100 ML IVPB SCH (17:02)
[2024-05-25] MEDS ORDERED: Benzocaine/Menthol 1 LOZ LOZ PO PRN (18:47)
[2024-05-25 19:23] LABS: Hemoglobin 8.8 g/dL (12.0-16.0); Platelet Count 152 10x3/uL (130-400)
[2024-05-25] MEDS: Benzocaine/Menthol 1 LOZ LOZ PO SCH (19:32)
[2024-05-26 04:05] LABS: #Basophils Less than 0.03 10x3/uL (0.0-0.2); %Basophils 0.2 % (0.0-1.0); %Eosinophils 3.2 % (0.0-10.0); %Lymphocytes 11.8 % (21.0-51.0); %Monocytes 8.9 % (0.0-10.0); %Neutrophils 75.6 % (42.0-75.0); Hematocrit 26.3 % (36.0-47.0); Mean Corpuscular HGB CONC 34.2 g/dL (32.0-36.0); Mean Corpuscular Hemoglobin 30.2 pg (27.0-31.0); Mean Corpuscular Volume 88.3 fL (78.0-98.0); Mean Platelet Volume 8.9 fL (7.4-10.4); Platelet Count 146 10x3/uL (130-400); RBC Distribution Width 14.6 % (11.5-14.5); Red Blood Cell (RBC) Count 2.98 mill/uL (4.20-5.40)
[2024-05-26 04:24] LABS: Anion Gap 9 mmol/L (10-20); BUN (Urea Nitrogen) 4 mg/dL (9.8-20.1); Calc. Creatinine Clearance 120 mL/min (70-130); Calcium 8.5 mg/dL (7.8-10.44); Carbon Dioxide 25 mmol/L (23-31); Chloride 104 mmol/L (98-107); Estimated GFR 101; Glucose 116 mg/dL (80-115); Potassium 3.4 mmol/L (3.5-5.1); Sodium 135 mmol/L (136-145)
[2024-05-26] MEDS: Ondansetron PF 4 MG/2 ML Vial IVP PRN (09:13)
[2024-05-26] MEDS: Potassium Chloride 20 MEQ TAB PO SCH (09:13)
[2024-05-26] MEDS: Pantoprazole 40 MG VIAL IVP SCH (09:19)
[2024-05-26 12:22] VITALS: TEMP 98.1
[2024-05-26] MEDS ORDERED: Lorazepam 1 MG TAB PO PRN (14:25)
[2024-05-27] MEDS ORDERED: Lorazepam 0.5 MG TAB PO PRN (14:25)
[2024-05-27] MEDS ORDERED: Thiamine 100 MG TAB PO SCH (14:30)
== END 2024-05-26 12:46 | disposition home or self-care (01) | DRG 378 ==
LOC: ERS 12:31 → IMCU/EMU 14:32
PROVIDERS: ADMIT Family Medicine; ATTEND Internal Medicine
PROC: 0DB78ZX Excision of Stomach, Pylorus, Via Natural or Artificial Opening Endoscopic, Diagnostic (ICD-10-PCS; principal; 2024-05-25)
PROC: 0W3P8ZZ Control Bleeding in Gastrointestinal Tract, Via Natural or Artificial Opening Endoscopic (ICD-10-PCS; 2024-05-25)
PROC: 30233N1 Transfusion of Nonautologous Red Blood Cells into Peripheral Vein, Percutaneous Approach (ICD-10-PCS; 2024-05-25)
DX: K25.4 Chronic or unspecified gastric ulcer with hemorrhage (principal); D62 Acute posthemorrhagic anemia; N39.0 Urinary tract infection, site not specified; E87.6 Hypokalemia; F17.210 Nicotine dependence, cigarettes, uncomplicated; E78.5 Hyperlipidemia, unspecified; I10 Essential (primary) hypertension; F10.10 Alcohol abuse, uncomplicated; Z88.0 Allergy status to penicillin; Z79.899 Other long term (current) drug therapy; Z90.710 Acquired absence of both cervix and uterus; Z85.43 Personal history of malignant neoplasm of ovary; Z86.718 Personal history of other venous thrombosis and embolism; Z71.6 Tobacco abuse counseling; Z79.82 Long term (current) use of aspirin
CPT/HCPCS: 36415; 36416; 36430; 74177; 80048; 80053; 80307; 81001; 83605; 83690; 83735; 84100; 85014; 85018; 85025; 85049; 85610; 85730; 86850; 86900; 86901; 87086; 88305; 88342; 93005; 96374; 96375; C1889; J0696; J2250; J2354; J2405; J2470; J2704; J3411; J3475; J7050; P9016

== ENCOUNTER 2024-06-02 13:22 | Emergency (ER) | payer OTHER ==
[2024-06-02] MEDS ORDERED: Famotidine/PF 20 mg/2ml Vial ONE ×3 (14:15→15:09)
[2024-06-02 15:09] LABS: #Basophils Less than 0.03 10x3/uL (0.0-0.2); %Basophils 0.2 % (0.0-1.0); %Eosinophils 1.3 % (0.0-10.0); %Lymphocytes 14.3 % (21.0-51.0); %Monocytes 10.3 % (0.0-10.0); %Neutrophils 73.7 % (42.0-75.0); Hematocrit 28.6 % (36.0-47.0); Hemoglobin 9.6 g/dL (12.0-16.0); Mean Corpuscular HGB CONC 33.6 g/dL (32.0-36.0); Mean Corpuscular Hemoglobin 30.8 pg (27.0-31.0); Mean Corpuscular Volume 91.7 fL (78.0-98.0); Mean Platelet Volume 9.3 fL (7.4-10.4); Platelet Count 270 10x3/uL (130-400); RBC Distribution Width 14.9 % (11.5-14.5); Red Blood Cell (RBC) Count 3.12 mill/uL (4.20-5.40)
[2024-06-02 15:38] LABS: ALT (SGPT) 11 U/L (Less than 34); AST (SGOT) 27 U/L (11-34); Albumin 4.1 g/dL (3.1-4.5); Alkaline Phosphatase 61 U/L (40-110); Anion Gap 15 mmol/L (10-20); BUN (Urea Nitrogen) 7 mg/dL (9.8-20.1); Bilirubin, Total 0.6 mg/dL (0.3-1.2); Calc. Creatinine Clearance 0 mL/min (70-130); Calcium 9.5 mg/dL (7.8-10.44); Carbon Dioxide 24 mmol/L (23-31); Chloride 100 mmol/L (98-107); Estimated GFR 98; Globulin 3.3 g/dL (2.4-3.5); Glucose 84 mg/dL (80-115); Lipase 9 U/L (8-78); Potassium 4.9 mmol/L (3.5-5.1); Protein, Total 7.4 g/dL (5.8-8.1); Sodium 134 mmol/L (136-145)
[2024-06-02 15:40] LABS: Troponin I Less than 0.010 ng/mL (< 0.028)
[2024-06-02 17:59] LABS: Bacteria/HPF None Seen HPF (None Seen); Bilirubin Negative (Negative); Blood, Urine Negative (Negative); CAUTI Indications for Culture Pelvic or flank pain; Clarity Clear (Clear); Glucose, Urine (Dipstick) Normal (Negative); Ketone, Urine 20 mg/dL (Negative); Leukocyte Negative Leu/uL (Negative); Nitrite Negative (Negative); Protein, Urine (Dipstick) Negative (Neg-Trace); RBC/HPF 0-3 HPF (0-3); Squamous Epithelial 0-3 HPF (0-3); Urobilinogen Normal mg/dL (Less than 2); WBC/HPF 0-3 HPF (0-3)
[2024-06-02 18:02] LABS: Specific Gravity, Urine 1.055 (1.002-1.036); Urine Culture Reflex No No
== END 2024-06-02 18:18 ==
LOC: ERS 13:22
DX: R10.84 Generalized abdominal pain (principal); R07.9 Chest pain, unspecified; I10 Essential (primary) hypertension; F17.210 Nicotine dependence, cigarettes, uncomplicated
CPT/HCPCS: 71045; 74177; 80053; 81001; 83605; 83690; 83880; 84484; 85025; 86850; 86900; 86901; 93005; J3490; 36415; 96374

== ENCOUNTER 2024-12-17 03:57 | Emergency (ER) | payer OTHER | END 2024-12-17 05:36 | LOC: ERS 03:57 | DX: Z02.89 Encounter for other administrative examinations (principal); F17.210 Nicotine dependence, cigarettes, uncomplicated; I10 Essential (primary) hypertension; C56.9 Malignant neoplasm of unspecified ovary; Z55.6 Problems related to health literacy; Z79.82 Long term (current) use of aspirin; Z79.899 Other long term (current) drug therapy | CPT/HCPCS: 36416; 99283 ==